=== PATIENT | female | born 1935 | race African-American/Black ===

== ENCOUNTER → 2017-05-04 | Outpatient (CLI) | payer OTHER | LOC: RAD 10:31 | DX: Z12.31 Encounter for screening mammogram for malignant neoplasm of breast (principal) ==

== ENCOUNTER → 2017-06-30 | Outpatient (CLI) | payer OTHER | LOC: NUC 07:51 | DX: I25.10 Atherosclerotic heart disease of native coronary artery without angina pectoris (principal); I10 Essential (primary) hypertension; E11.9 Type 2 diabetes mellitus without complications; E78.5 Hyperlipidemia, unspecified ==

== ENCOUNTER → 2018-05-18 | Outpatient (CLI) | payer OTHER | LOC: RAD 10:56 | DX: Z12.31 Encounter for screening mammogram for malignant neoplasm of breast (principal) ==

== ENCOUNTER → 2018-09-04 | Outpatient (CLI) | payer OTHER ==
--- NOTE | 2018-09-04 15:23 | 2DMMODE ---
[facility] [place] [address] 2 D/M-MODE ECHOCARDIOGRAM Name: AMINA BO Room #: REG [facility]#: [id number] ������������� Admission: 09/04/18 ������������� Attend Phys: Jadon Pitts MD Discharge: ��� ������������� ��� Date of : 39 Date of Service: 09/04/18 1523 �� Report #: [id number] �������� ��������������������������������������������[id number] THIS REPORT FOR: //name// ADDENDUM APPROVED REPORT Study performed: 09/04/2018 14:08:37 EXAM: Comprehensive 2D, Doppler, and color-flow Echocardiogram Patient Location: Out-Patient Room #: Echo lab 1 Status: routine BSA: 1.68 HR: 88 bpm BP: 126/72 mmHg Rhythm: NSR Other Information Study Quality: Adequate Indications CAD 2D Dimensions RVDd: 34.89 mm IVSd: 8.03 (7-11mm) LVOT Diam: 16.53 (18-24mm) LVDd: 36.96 mm PWd: 7.88 (7-11mm) Ascending Ao: 28.51 (22-36mm) LVDs: 25.31 (25-40mm) Aortic Root: 26.07 mm IVC: 13.00 mm Volumes Left Atrial Volume (Systole) Single Plane 4CH: 27.53 mL Single Plane 2CH: 26.20 mL LA ESV Index: 20.00 mL/m2 Aortic Valve AoV Peak Barry.: 1.01 m/s AO Peak Gr.: 4.10 mmHg LVOT Max P.15 mmHg LVOT Max V: 1.02 m/s JOEL Vmax: 2.16 cm2 Mitral Valve IVRT: 96.89 ms Pulmonary Valve [facility] [address] [address] 2 D/M-MODE ECHOCARDIOGRAM Name: AMINA BO Room #: REG [facility]#: [id number] ������������� Admission: 09/04/18 ������������� Attend Phys: Jadon Pitts MD Discharge: ��� ������������� ��� Date of : 39 Date of Service: 09/04/18 1523 �� Report #: [id number] �������� ��������������������������������������������[id number] PV Peak Barry.: 0.95 m/s PV Peak Gr.: 3.60 mmHg Pulmonary Vein P Vein S: 0.73 m/s P Vein A: 0.27 m/s P Vein D: 0.45 m/s P Vein A Dur.: 83.0 msec P Vein S/D Ratio: 1.62 Tricuspid Valve TR Peak Barry.: 3.07 m/s TR Peak Gr.: 37.61 mmHg PA Pressure: 43.00 mmHg Left Ventricle The left ventricle is normal size. There is normal LV segmental wall motion. There is normal left ventricular wall thickness. The left ventricular systolic function is normal. The left ventricular ejection fraction is within the normal range. LVEF is 55-60%. Grade I - abnormal relaxation pattern. Right Ventricle The right ventricle is normal size. The right ventricular systolic function is normal. Atria The left atrium size is normal. The right atrium size is normal. Aortic Valve The aortic valve is normal in structure. No aortic regurgitation is present. There is no aortic valvular stenosis. Mitral Valve The mitral valve is normal in structure. Trace mitral regurgitation. No evidence of mitral valve stenosis. Tricuspid Valve The tricuspid valve is normal in structure. There is moderate tricuspid regurgitation. Estimated PAP 43 mmHg. There is moderate pulmonary hypertension. Pulmonic Valve The pulmonary valve is normal in structure. Trace pulmonic regurgitation. Great Vessels The aortic root is normal in size. IVC is normal in size and [facility] [address] [place] [address] 2 D/M-MODE ECHOCARDIOGRAM Name: AMINA BO Room #: REG [facility].#: [id number] ������������� Admission: 09/04/18 ������������� Attend Phys: Jadon Pitts MD Discharge: ��� ������������� ��� Date of : 39 Date of Service: 09/04/18 1523 �� Report #: [id number] �������� ��������������������������������������������[id number] collapses >50% with inspiration. Pericardium There is no pericardial effusion. <Conclusion> The left ventricle is normal size. There is normal left ventricular wall thickness. The left ventricular systolic function is normal. Grade I - abnormal relaxation pattern. The right ventricle is normal size. The left atrium size is normal. The aortic valve is normal in structure. Trace mitral regurgitation. There is moderate tricuspid regurgitation. Estimated PAP 43 mmHg. There is moderate pulmonary hypertension. ��������������������������������������������� <ELECTRONICALLY SIGNED> ���������������������������������������� By: Jadon Pitts MD ��������������������������������������������� 09/04/18 1523 1523 1523 Jadon Pitts MD /INF
== END ==
LOC: CV 08-03 10:03
DX: I07.1 Rheumatic tricuspid insufficiency (principal); I25.10 Atherosclerotic heart disease of native coronary artery without angina pectoris

== ENCOUNTER → 2020-11-27 | Outpatient (CLI) | payer OTHER | LOC: SJCVCIMAG 07:42 | PROVIDERS: ATTEND Internal Medicine Cardiovascular Disease | DX: I49.3 Ventricular premature depolarization (principal); R00.1 Bradycardia, unspecified; I25.10 Atherosclerotic heart disease of native coronary artery without angina pectoris; I10 Essential (primary) hypertension; E78.00 Pure hypercholesterolemia, unspecified; K21.9 Gastro-esophageal reflux disease without esophagitis; E78.5 Hyperlipidemia, unspecified; E11.9 Type 2 diabetes mellitus without complications; Z79.82 Long term (current) use of aspirin; Z79.899 Other long term (current) drug therapy; Z87.891 Personal history of nicotine dependence ==

== ENCOUNTER → 2021-06-04 | Outpatient (CLI) | payer OTHER | LOC: NUC 08:35 | DX: Z12.31 Encounter for screening mammogram for malignant neoplasm of breast (principal); Z78.0 Asymptomatic menopausal state; M85.88 Other specified disorders of bone density and structure, other site; N64.89 Other specified disorders of breast ==